=== PATIENT | female | born 1980 | race Caucasian/White ===

== ENCOUNTER 2020-04-18 09:01 | Emergency (ER) | payer BC, SELFPAY ==
--- NOTE | ~2020-04-18 | XR_ITS ---
EXAMINATION: XR chest 1V portable DATE: 04/18/2020 09:44 INDICATION: Shortness of breath. TECHNIQUE: A single frontal view of the chest was obtained. COMPARISON: None. FINDINGS: The chest demonstrates clear lungs without pneumonia, pleural effusion, or pneumothorax. Th e heart size is normal. IMPRESSION: 1. No acute cardiopulmonary disease. Reviewed, dictated and finalized at location A. [employer]
[2020-04-18 09:09] VITALS: BP 110/81; PULSE 82; RESP 20; TEMP 36.4; O2SAT 99
--- NOTE | 2020-04-18 09:13 | ECG_ITS ---
Measurements Intervals [place] Rate: 81 P: 64 NC: 153 QRS: 30 QRSD: 93 T: 39 QT: 367 QTc: 426 Interpretive Statements SINUS RHYTHM WITH SINUS ARRHYTHMIA BORDERLINE T WAVE ABNORMALITY- ANTERIOR LEADS BASELINE WANDER- II, III BORDERLINE ECG Electronically Signed On 04-18-2020 9:37:55 [employer]GER [employer] by Edson Domingo D.O.
--- NOTE | 2020-04-18 09:17 | ED.GENADULT ---
HPI - General Adult General Chief complaint: Shortness of Breath/Dyspnea <Amadeo Gomez PA-C - Last Filed: 04/18/20 15:00> Stated complaint: CP, SOB <Amadeo Gomez PA-C - Last Filed: 04/18/20 15:00> Time Seen by Provider: 04/18/20 09:05 <Amadeo Gomez PA-C - Last Filed: 04/18/20 15:00> Source: patient <CARROLL Lanier Last Filed: 04/18/20 15:00> Mode of arrival: ambulatory <CARROLL Lanier Last Filed: 04/18/20 15:00> Limitations: no limitations <CARROLL Lanier Last Filed: 04/18/20 15:00> History of Present Illness HPI narrative: Patient with history of asthma, hysterectomy, and estrogen supplementation presents with chief complaint of fatigue, shortness of breath, intermittent chest pain and intermittent swelling. Patient tested positive for Covid on March 27. Patient states that she feels that her fatigue and endurance should be better at this point. Patient states over the past week and 1/2 to 2 weeks she occasionally has sharp pains noted to the left side of her chest. Patient states they last a few minutes and then resolved without intervention. Patient does not have the pain presently. Patient has an appointment with her primary care provider on but she states when she woke up this morning she felt that her hands were swollen so she wanted to be evaluated to make sure she did not have CHF as her mother from CHF complications at the age of 58. Patient is a smoker who takes estrogen supplementations for hysterectomy. Patient denies productive cough, fever, chills, present chest pain, nausea and vomiting, headache, syncope. Patient states that she uses her rescue inhaler on occasion as she has asthma. Patient denies present wheezing. <Amadeo Gomez PA-C - Last Filed: 04/18/20 15:00> Related Data Home medications: Home Medications Medication Instructions Recorded Confirmed albuterol sulfate INHALATION 04/18/20 benzonatate mg PO 04/18/20 clonazepam 04/18/20 04/18/20 doxycycline hyclate 04/18/20 duloxetine mg PO 04/18/20 estradiol mg 04/18/20 famotidine 04/18/20 fluticasone propion-salmeterol INHALATION 04/18/20 [Advair Diskus] lamotrigine 04/18/20 trazodone 04/18/20 <Amadeo Gomez PA-C - Last Filed: 04/18/20 15:00> Allergies/adverse reactions: Allergies Allergy/AdvReac Type Severity Reaction Status Date / Time codeine Allergy Unknown Verified 04/18/20 09:30 levofloxacin [From Levaquin] Allergy Unknown Verified 04/18/20 09:30 morphine Allergy Unknown Verified 04/18/20 09:30 <Amadeo Gomez PA-C - Last Filed: 04/18/20 15:00> Review of Systems Review of Systems: Narrative: CONSTITUTIONAL: Reports fatigue denies fever, chills, or sweats. EYES: Denies visual changes, redness, or discharge. ENT: Denies rhinorrhea, congestion, sore throat, or otalgia. CARDIOVASCULAR: Reports intermittent chest pain-not currently present denies palpitations, or edema. RESPIRATORY: Patient reports dyspnea with exertion denies cough GASTROINTESTINAL: Denies abdominal pain, nausea, vomiting, or diarrhea. GENITOURINARY: Denies dysuria or hematuria. SKIN: Denies rash or itching. MUSCULOSKELETAL: Denies back pain, joint pain, or myalgia. NEUROLOGIC: Denies headache, numbness, dizziness, or weakness. PSYCHIATRIC: Denies anxiety or depression. <Amadeo Gomez PA-C - Last Filed: 04/18/20 15:00> Exam Narrative: Exam Narrative: GENERAL: Well-appearing, well-nourished, and in no acute distress. HEAD: Normocephalic, atraumatic. EYES: PERRLA and EOMI. NECK: Supple. No adenopathy or masses. CHEST: Clear to auscultation breath sounds auscultated throughout. No respiratory distress. No wheezes rales or rhonchi. Patient speaking without tachypnea or difficulty. HEART: Regular rate and rhythm. No murmur heard. Normal peripheral pulses. ABDOMEN: Soft, nontender, nondistended, normal active bowel sounds. EXTREMITIES: Normal ran
[2020-04-18 09:42] LABS: Basophils Percent Auto 0.5 % (0.2-1.2); Eosinophils Absolute Auto 0.2 K/mm3 (0-0.3); Eosinophils Percent Auto 2.8 % (0-4.4); Hematocrit 41.6 % (37.0-47.0); Hemoglobin 13.8 g/dL (12.0-15.0); Immature Granulocyte Absolute 0.05 K/mm3 (0.00-0.031); Immature Granulocyte Percent A 0.7 % (0-0.5); Lymphocytes Absolute Auto 1.83 K/mm3 (0.9-3.2); Lymphocytes Percent Auto 24.8 % (18.3-44.2); Mean Corpuscular HGB Conc 33.2 g/dl (32-36); Mean Corpuscular Hemoglobin 29.7 pg (26-34); Mean Corpuscular Volume 89.7 fl (80-100); Mean Platelet Volume 9.7 fl (7.4-10.4); Monocytes Absolute Auto 0.4 K/mm3 (0.1-0.6); Monocytes Percent Auto 5.8 % (2.6-8.5); Neutrophils Absolute Auto 4.8 K/mm3 (1.3-6.7); Neutrophils Percent Auto 65.4 % (45.5-73.1); Platelet Count Result 221 k/mm3 (150-375); Red Blood Count 4.64 M/mm3 (4.2-5.4); Red Cell Distribution Width 12.9 % (11.5-14.5); White Blood Count 7.4 K/mm3 (4.5-10.0)
[2020-04-18 09:55] LABS: Alanine Aminotransferase 29 U/L (4-35); Albumin Level 3.7 g/dL (3.5-5.1); Alkaline Phosphatase 59 U/L (38-126); Anion Gap 5 mmol/L (8-16); Aspartate Amino Transferase 22 U/L (14-36); Bilirubin,Total 0.3 mg/dL (0.2-1.3); Blood Urea Nitrogen 8 mg/dL (7-17); Calcium 8.9 mg/dL (8.4-10.2); Carbon Dioxide 26 mmol/L (22-30); Chloride 109 mmol/L (98-107); Estimated CRCL calculation 97 ml/min; Estimated Glomerular Filt Rate > 60; Glucose 107 mg/dL (65-105); Potassium 4.1 mmol/L (3.4-5.0); Sodium 140 mmol/L (137-145)
[2020-04-18 10:00] VITALS: BP 116/80; PULSE 72; RESP 16; O2SAT 97
[2020-04-18 10:00] LABS: D Dimer 0.27 ug/mL (<0.48)
[2020-04-18 10:12] LABS: NT Pro B Type Natriuretic Pept 98 PG/ML (5-100); Troponin I < 0.012 ng/mL (0.000-0.034)
[2020-04-18 10:23] LABS: Add Urine Microscopic? YES; Appearance Urine Cloudy (Clear); Bacteria Urine Trace /hpf; Bilirubin Urine Negative (Negative); Blood Urine Negative (Negative); Color Urine Yellow (Yellow); Glucose Urine UA Negative (Negative); Ketones Urine Negative (Negative); Leukocyte Esterase Ur Negative LEU/UL (Negative); Mucus Urine Rare /lpf; Nitrate Urine Negative (Negative); Protein Urine Negative (Negative); RBC Urine 0-2 /hpf (0-2); Specific Grav Ur 1.012 (1.001-1.035); Squamous Epithelial Cell Urine Many /hpf (Few); Urobilinogen Urine Negative mg/dL (<2.0); WBC Urine 0-3 /hpf
[2020-04-18 10:45] VITALS: BP 120/70; PULSE 70; RESP 16; O2SAT 98
== END 2020-04-18 10:45 | disposition home or self-care (01) ==
PROVIDERS: Physician Assistant; Emergency Provider General Practice; PCP Nurse Practitioner Family
DX: U07.1 COVID-19 (principal); J45.909 Unspecified asthma, uncomplicated; F17.200 Nicotine dependence, unspecified, uncomplicated; R94.31 Abnormal electrocardiogram [ECG] [EKG]
CPT/HCPCS: 36415; 71045; 80053; 81001; 83880; 84484; 85025; 85380; 93005; 99284

== ENCOUNTER 2020-05-29 10:38 | Emergency (ER) | payer BC, SELFPAY ==
--- NOTE | ~2020-05-29 | CT_ITS ---
EXAMINATION: CT abdomen pelvis w con DATE: 05/29/2020 12:37 INDICATION: Right lower quadrant pain TECHNIQUE: Computed tomography (CT) of the abdomen and pelvis was performed with 100 cc Omnipaque 350 intravenous contrast. The dose-length product was 1098.94 mGy-cm. Automated exposure control and ite rative reconstruction technique were employed. COMPARISON: None. FINDINGS: Lung bases unremarkable. Heart size normal. No significant pleural or pericardial effusion. There are cholecystectomy clips. No significant vascular abnormality. No lymphadenopathy. There is mild prominence of the urothelium bilaterally with subtle periureteral edema. Bladder wall i s mildly thickened. Small subcentimeter hypodensity of the right kidney, too small to characterize, a lthough likely cysts. No acute osseous abnormality. The liver, spleen, pancreas and adrenal glands ar e unremarkable. Nonobstructive bowel gas pattern. Small fat-containing umbilical hernia. No abnormal pelvic masses or fluid collections. Uterus is likely surgically absent. IMPRESSION: 1. Mild prominence of the urothelium bilaterally with subtle periureteral edema. Bladder wall is mild ly thickened. Consider cystitis/ascending urinary tract infection in the appropriate clinical setting . Reviewed, dictated and finalized at location A. IMPRESSION: 1. Mild prominence of the urothelium bilaterally with subtle periureteral edema . Bladder wall is mildly thickened. Consider cystitis/ascending urinary tract i nfection in the appropriate clinical setting.
[2020-05-29 11:21] VITALS: BP 147/97; PULSE 86; RESP 14; TEMP 36.3; O2SAT 98
--- NOTE | 2020-05-29 11:29 | ED.ABDPAIN ---
HPI - Abdominal Pain General Chief Complaint: Abdominal Pain Stated Complaint: abd pain Time Seen by Provider: 05/29/20 11:03 Source: patient Mode of arrival: ambulatory Limitations: no limitations History of Present Illness HPI narrative: This patient is a 40 year old female with history of IBS who presents for evaluation of nausea and vomiting. She states this morning she became cold and diaphoretic with an episode of nausea and vomiting. She also reports midabdominal pain. She describes it as intermittent shooting pain that radiates epigastric and to her back. She denies diarrhea, fever. She states she called her PCP about today's episode and it was recommended for her to come to ER. Patient has been evaluated for similar episodes in the past and she has a diagnosis of irritable bowel syndrome. She also smokes at least 3 joints daily. She has been told of that her marijuana habit could be a source of her issues. She is concerned about an umbilical hernia so her PCP ordered an abdominal ultrasound 3 days ago. Related Data Home Medications Medication Instructions Recorded Confirmed albuterol sulfate INHALATION 04/18/20 benzonatate mg PO 04/18/20 clonazepam 04/18/20 04/18/20 doxycycline hyclate 04/18/20 duloxetine mg PO 04/18/20 estradiol mg 04/18/20 famotidine 04/18/20 fluticasone propion-salmeterol INHALATION 04/18/20 [Advair Diskus] lamotrigine 04/18/20 trazodone 04/18/20 Allergies Allergy/AdvReac Type Severity Reaction Status Date / Time codeine Allergy Unknown Verified 04/18/20 09:30 levofloxacin [From Levaquin] Allergy Unknown Verified 04/18/20 09:30 morphine Allergy Unknown Verified 04/18/20 09:30 Review of Systems Review of Systems: All systems reviewed & are unremarkable except as noted in HPI and below PMFSH Past Medical History Medical History (Updated 05/29/20 @ 13:33 by Mary Castro MD) Anxiety Depression IBS (irritable bowel syndrome) Surgical History Surgical History (Updated 05/29/20 @ 11:34 by Mary Castro MD) H/O section H/O: hysterectomy Social History Social History (Updated 05/29/20 @ 11:34 by Mary Castro MD) Smoking status: Former smoker Substance use: current Substance use type: marijuana Exam Const: General: no acute distress and alert Nutritional Appearance: obese centrally obese Orientation/consciousness: patient oriented x3 Eyes: EOM: EOMs intact bilaterally Chest: Chest palpation & inspection: normal inspection of the chest Resp: Effort & Inspection: normal respiratory effort and no retractions Auscultation: clear to auscultation bilaterally Cardio: Rate: regular rate Rhythm: regular rhythm Heart sounds: no murmurs GI: GI Palp: Yes Soft to palpation, Yes Tenderness to palpation present (GI), No Guarding due to palpation present (GI) and No Rigid due to palpation Auscultation: normal bowel sounds Skin: General skin exam: normal color Rashes: no rashes Neuro: General: patient oriented x3, moves all extremities and CN's II-XI intact bilaterally Course Reevaluation(s) Reevaluation #1: I Discussed with patient that labs were unremarkable. I reviewed CT results with patient about periureteral edema that she may need to follow up with urologist about. She will follow up with PCP. UA is normal so no antibiotics. SHe has not complaints at this time and she states she feels better. Date: 05/29/20 Time: 13:29 Vital Signs Vital signs: Vital Signs Temperature 97.3 F L 05/29/20 11:21 Pulse Rate 86 05/29/20 11:21 Respiratory Rate 14 05/29/20 11:21 Blood Pressure 147/97 H 05/29/20 11:21 Pulse Oximetry 98 05/29/20 11:21 Temperature 97.3 F L 05/29/20 11:21 Pulse Rate 70 05/29/20 13:53 Respiratory Rate 14 05/29/20 13:53 Blood Pressure 110/74 05/29/20 13:53 Pulse Oximetry 99 05/29/20 13:53 MDM - Abdominal Pain Lab Data Attestation: I reviewed the patient's lab
[2020-05-29 11:34] LABS: Add Urine Microscopic? NO; Appearance Urine Clear (Clear); Bilirubin Urine Negative (Negative); Blood Urine Negative (Negative); Color Urine Straw (Yellow); Glucose Urine UA Negative (Negative); Ketones Urine Negative (Negative); Leukocyte Esterase Ur Negative LEU/UL (Negative); Nitrate Urine Negative (Negative); Protein Urine Negative (Negative); Specific Grav Ur 1.006 (1.001-1.035); Urobilinogen Urine Negative mg/dL (<2.0)
[2020-05-29] MEDS: ONDANSETRON INJ 4 MG/2 ML VIAL IV PUSH (11:52)
[2020-05-29] MEDS: KETOROLAC 30 MG/ML VIAL (*BKC) IV PUSH (11:52)
[2020-05-29] MEDS: SODIUM CHLORIDE 0.9% IV 1,000 ML 999 ML IV CONT (11:52)
[2020-05-29 11:56] LABS: Basophils Absolute Auto 0.1 K/mm3 (0.0-0.1); Basophils Percent Auto 0.7 % (0.2-1.2); Eosinophils Absolute Auto 0.3 K/mm3 (0-0.3); Eosinophils Percent Auto 2.7 % (0-4.4); Hematocrit 42.6 % (37.0-47.0); Hemoglobin 14.2 g/dL (12.0-15.0); Immature Granulocyte Absolute 0.11 K/mm3 (0.00-0.031); Immature Granulocyte Percent A 1.2 % (0-0.5); Lymphocytes Absolute Auto 2.37 K/mm3 (0.9-3.2); Lymphocytes Percent Auto 25.8 % (18.3-44.2); Mean Corpuscular HGB Conc 33.3 g/dl (32-36); Mean Corpuscular Hemoglobin 28.7 pg (26-34); Mean Corpuscular Volume 86.2 fl (80-100); Mean Platelet Volume 9.6 fl (7.4-10.4); Monocytes Absolute Auto 0.5 K/mm3 (0.1-0.6); Monocytes Percent Auto 4.9 % (2.6-8.5); Neutrophils Absolute Auto 5.9 K/mm3 (1.3-6.7); Neutrophils Percent Auto 64.7 % (45.5-73.1); Platelet Count Result 257 k/mm3 (150-375); Red Blood Count 4.94 M/mm3 (4.2-5.4); White Blood Count 9.2 K/mm3 (4.5-10.0)
[2020-05-29 12:07] LABS: Alanine Aminotransferase 19 U/L (4-35); Alkaline Phosphatase 63 U/L (38-126); Anion Gap 4 mmol/L (8-16); Aspartate Amino Transferase 19 U/L (14-36); Bilirubin,Total 0.1 mg/dL (0.2-1.3); Blood Urea Nitrogen 10 mg/dL (7-17); Calcium 8.9 mg/dL (8.4-10.2); Carbon Dioxide 28 mmol/L (22-30); Chloride 107 mmol/L (98-107); Estimated CRCL calculation 86 ml/min; Estimated Glomerular Filt Rate > 60; Glucose 96 mg/dL (65-105); Lipase 114 U/L (23-300); Potassium 4.3 mmol/L (3.4-5.0); Sodium 139 mmol/L (137-145)
--- NOTE | 2020-05-29 12:13 | ECG_ITS ---
Measurements Intervals [place] Rate: 59 P: 42 ND: 163 QRS: 21 QRSD: 93 T: 44 QT: 414 QTc: 410 Interpretive Statements SINUS BRADYCARDIA WITH SINUS ARRHYTHMIA BORDERLINE T WAVE ABNORMALITY- ANTERIOR LEADS BORDERLINE ECG Electronically Signed On 05-29-2020 13:31:53 CDT by Edson Domingo D.O.
[2020-05-29 13:53] VITALS: BP 110/74; PULSE 70; RESP 14; O2SAT 99
== END 2020-05-29 13:53 | disposition home or self-care (01) ==
PROVIDERS: Emergency Provider General Practice; PCP Nurse Practitioner Family
DX: R11.2 Nausea with vomiting, unspecified (principal); K58.9 Irritable bowel syndrome, unspecified; R10.31 Right lower quadrant pain; F32.9 Major depressive disorder, single episode, unspecified; F41.9 Anxiety disorder, unspecified; Z87.891 Personal history of nicotine dependence; R00.1 Bradycardia, unspecified; R94.31 Abnormal electrocardiogram [ECG] [EKG]; R93.41 Abnormal radiologic findings on diagnostic imaging of renal pelvis, ureter, or bladder
CPT/HCPCS: 36415; 74177; 80053; 81003; 81025; 83690; 85025; 93005; 96361; 96374; 96375; 99284; J1885; J2405; J7030; Q9967